=== PATIENT | male | born 1965 | race African-American/Black ===

== ENCOUNTER 2019-12-01 17:02 | Emergency (ER) | payer OTHER ==
[~2019-12-01] VITALS: Ht 182.9 cm; Wt 99.8 kg
[~2019-12-01 17:02] MED LIST: AMLODIPINE BESY10 MG PO; HYDROCHLOROTH12.5 M1 PO; NORVASC10 MG PO; PRILOSEC 20 MG20 MG PO; ZPAK PO
[2019-12-01] MEDS ORDERED: NORFLEX100 MG PO (18:30)
[2019-12-01] MEDS ORDERED: NAPROSYN500 MG PO (18:30)
[2019-12-01 18:51] VITALS: BP 151/103
== END 2019-12-01 18:52 | disposition home or self-care (01) ==
LOC: ER 17:02
DX: M54.12 Radiculopathy, cervical region (principal); I10 Essential (primary) hypertension; R20.2 Paresthesia of skin; M25.511 Pain in right shoulder; Z79.899 Other long term (current) drug therapy

== ENCOUNTER 2019-12-20 09:45 | Emergency (ER) | payer OTHER ==
[~2019-12-20] VITALS: Ht 182.9 cm; Wt 99.8 kg
[~2019-12-20 09:45] MED LIST changes: +NAPROSYN500 MG PO; +NORFLEX100 MG PO
[2019-12-20 09:49] VITALS: BP 173/108
== END 2019-12-20 10:54 | disposition home or self-care (01) ==
LOC: ER 09:45
DX: R07.89 Other chest pain (principal); I10 Essential (primary) hypertension; Z79.899 Other long term (current) drug therapy; W18.09XA Striking against other object with subsequent fall, initial encounter; Y93.89 Activity, other specified; Y92.89 Other specified places as the place of occurrence of the external cause; Y99.8 Other external cause status

== ENCOUNTER 2020-03-09 20:09 | Emergency (ER) | payer OTHER ==
[~2020-03-09] VITALS: Ht 182.9 cm; Wt 99.8 kg
[2020-03-09 22:38] VITALS: BP 133/79
== END 2020-03-09 22:33 | disposition home or self-care (01) ==
LOC: ER 20:09
DX: S61.214A Laceration without foreign body of right ring finger without damage to nail, initial encounter (principal); I10 Essential (primary) hypertension; Z79.899 Other long term (current) drug therapy; W18.39XA Other fall on same level, initial encounter; Y93.89 Activity, other specified; Y92.89 Other specified places as the place of occurrence of the external cause; Y99.8 Other external cause status

== ENCOUNTER 2020-12-31 12:29 | Inpatient (IN) | payer OTHER ==
[~2020-12-31] VITALS: Ht 182.9 cm; Wt 94.8 kg
[2020-12-31 12:38] VITALS: BP 202/112
[2020-12-31 13:35] LABS: ABSOLUTE NEUTROPHILS 6.9 thou/uL (1.4-8.2); BASOPHILS 0.2 % (0.0-2.0); EOSINOPHILS 0.1 % (0.0-3.0); HEMATOCRIT 52.5 % (42.0-52.0); HEMOGLOBIN 18.3 gm/dL (14.0-18.0); LYMPHOCYTES 1.3 % (24.0-44.0); MCH 28.6 pg (26.0-34.0); MCHC 34.9 g/dL (28.0-37.0); MCV 81.9 fL (80.0-100.0); MONOCYTES 10.2 % (1.0-8.0); PLATELET COUNT 291 thou/uL (150-400); POLYS 88.2 % (36.0-66.0); RBC 6.41 mil/uL (4.50-6.00); RDW 14.7 % (10.5-14.5); WBC 7.8 thou/uL (4.0-11.0)
[2020-12-31 13:54] LABS: ANION GAP 12 mmol/L (7-16); BUN 78 mg/dL (7-18); CALCIUM 8.4 mg/dL (8.5-10.1); CHLORIDE 96 mmol/L (98-107); CO2 23 mmol/L (21-32); CREATININE 3.8 mg/dL (0.7-1.3); GLUCOSE 117 mg/dL (74-106); SODIUM 131 mmol/L (136-145)
[2020-12-31 13:58] LABS: ALBUMIN 1.7 g/dL (3.4-5.0); SGOT 68 U/L (15-37); SGPT 57 U/L (16-63); TOTAL BILIRUBIN 0.6 mg/dL (0.2-1.0); TOTAL PROTEIN 6.7 g/dL (6.4-8.2); TROPONIN-I <0.06 ng/mL (<0.06)
--- NOTE | 2020-12-31 14:42 | EKG ---
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 : 1965 Requested By: Aleksandra Brown Order Number: [id number] MD: Lorne Shannon Measurements Intervals [place] Rate: 113 P: 34 OR: 185 QRS: 38 QRSD: 98 T: 46 QT: 320 QTc: 439 Interpretive Statements Sinus tachycardia Probable left atrial enlargement Borderline T wave abnormalities Compared to ECG 05/08/2016 17:45:56 T-wave abnormality now present Sinus rhythm no longer present Possible ischemia no longer present Electronically Signed On 12-31-2020 14:42:21 CDT by Lorne Shannon [email or web address] <ELECTRONICALLY SIGNED> By: Lorne Shannon MD, [facility] 12/31/20 1442 1341 1341 Lorne Shannon MD, FACC /EPI
[2020-12-31 15:26] LABS: APTT 39.2 Seconds (24.5-32.8); D-DIMER 0.47 ug/mLFEU (0.19-0.50); INR 1.12; PROTIME 12.1 Seconds (10.5-12.1)
[2020-12-31 18:32] VITALS: BP 187/94
[2020-12-31 18:48] VITALS: BP 179/115
--- NOTE | 2020-12-31 19:30 | NUR ---
PATIENT ADMIT TO UNIT AT 1835 FROM ER. A/O X4. ON 4L/NC. BP 179/115. UP AD CAPO. WILL KEEP MONITOR.
[2020-12-31 22:27] LABS: ALBUMIN 1.4 g/dL (3.4-5.0); TOTAL PROTEIN 6.2 g/dL (6.4-8.2)
--- NOTE | 2020-12-31 23:45 | NUR ---
PT RESTING IN BED. FLAT AFFECT. O2 PER NC. PT LUNGS WITH CRACKLES, ABD DISTENDED. PT PROVIDED MEAL TRAY. IVF INTACT. PT CALLS FOR ASSISTANCE. RENAL US COMPLETED. ID DR VISITED WITH PT. PT PROVIDED SPUTUM CONTAINER. BP REMAINS ELEVATED.
[2021-01-01 00:47] LABS: BE(vivo) -4.9 mmol/L (-2 to +3); HCO3 18.2 mmol/L (22.0-26.0); PCO2 30.2 mmHg (35.0-45.0); pH 7.398 (7.360-7.450); sO2 95.5 % (92.0-98.0)
[2021-01-01 02:32] LABS: HEMOGLOBIN 17.1 gm/dL (14.0-18.0); WBC 3.9 thou/uL (4.0-11.0)
[2021-01-01 02:35] LABS: ABSOLUTE NEUTROPHILS 3.6 thou/uL (1.4-8.2); BASOPHILS 0.2 % (0.0-2.0); HEMATOCRIT 47.9 % (42.0-52.0); MCH 28.7 pg (26.0-34.0); MCHC 35.7 g/dL (28.0-37.0); MCV 80.6 fL (80.0-100.0); MONOCYTES 3.7 % (1.0-8.0); PLATELET COUNT 279 thou/uL (150-400); POLYS 94.1 % (36.0-66.0); RBC 5.95 mil/uL (4.50-6.00); RDW 14.2 % (10.5-14.5)
[2021-01-01 02:53] LABS: ALBUMIN 1.4 g/dL (3.4-5.0); CALCIUM 7.3 mg/dL (8.5-10.1); CREATININE 3.4 mg/dL (0.7-1.3); MAGNESIUM 2.5 mg/dL (1.8-2.4); POTASSIUM 4.5 mmol/L (3.5-5.1); TOTAL BILIRUBIN 0.6 mg/dL (0.2-1.0); TOTAL PROTEIN 5.2 g/dL (6.4-8.2)
[2021-01-01 04:31] VITALS: BP 170/108
[2021-01-01 07:46] VITALS: BP 164/102
[2021-01-01 11:54] VITALS: BP 160/107
[2021-01-01 14:02] LABS: URINE BILIRUBIN NEGATIVE (Negative); URINE BLOOD 1+ (Negative); URINE CLARITY CLEAR; URINE COLOR YELLOW; URINE GLUCOSE-RANDOM* TRACE (Negative); URINE KETONES NEGATIVE (Negative); URINE LEUKOCYTES NEGATIVE (Negative); URINE NITRITE NEGATIVE (Negative); URINE PROTEIN (DIPSTICK) 3+ (Negative); URINE SPECIFIC GRAVITY 1.025 (1.005-1.035); URINE UROBILINOGEN 0.2 E.U./dl (0.2-1.0)
--- NOTE | 2021-01-01 14:14 | NUR ---
ROSEMARIE SPOKE TO RENAL DR. MARQUEZ REGARDING LABS INABILITY TO DRAW LABS,AND PIV'S NOT LASTING. DR. Greene GAVE OK FOR MIDLINE PLACEMENT. DISCUSSED BENEFITS AND RISK OF ML WITH PT, VERBALIZED UNDERSTANDING AND GAVE VERBAL CONSENT. JIMENA JEFFERS WAS WIDELY PATENT WITH USG, MEASURED 32%. 4FR POWER ML TRIMMED TO 14CM X1 STICK TO 0CM. LABS OBTAINED. PT TOLERATED WELL. ML RELEASED FOR IMMEDIATE USE PER PROTOCOL TO EULALIO MENDIOLA
--- NOTE | 2021-01-01 14:23 | NUR ---
At 1211 Moriah Damon at [facility] confirmed that patient had a positive covid test from [facility] on 12/22/20.
[2021-01-01 14:31] LABS: PROT/CREAT RATIO 8.3
[2021-01-01 14:32] LABS: HYALINE CASTS 0-3 Few /LPF (None Seen)
[2021-01-01 14:33] LABS: SQUAMOUS 0-3 Few /LPF (0-3); URINE RBC 1-2 Rare /HPF (NONE SEEN); URINE WBC 1-5 Rare /HPF (NONE SEEN)
[2021-01-01 14:35] LABS: AMORPHOUS URATES Moderate /LPF (None Seen)
--- NOTE | 2021-01-01 14:56 | NUR ---
INITIAL ASSESSMENT: Received consult. ALONA reviewed chart and spoke with nursing and attending physician. Pt was admitted due to COVID pneumonia. Pt placed in Enhanced Isolation. Pt is afebrile and requiring 4L of O2. Pt is on IV abx and IV steroids. Remdesivir and Ivermectin started. SW placed call to pt's room. No answer. Per chart, pt had positive COVID test on 12/[address] [facility]. Pt does not have health insurance. [employer] to screen pt to assist with Medicaid application and/or financial assistance. SW is following to assist as needed with discharge planning.
[2021-01-01 15:26] VITALS: BP 181/104
[2021-01-01 16:06] VITALS: BP 153/104
--- NOTE | 2021-01-01 17:32 | NUR ---
RN ASSUMED PT'S CARE AT 0700AM, PT IS A&OX4, PT IS ON O2 3L/MIN/NC, PT IS CONTINUING IV ABX AND IV FLIUDS, PT HAS STARTED TREATING POSITION COVID, PT HAS SOB WITH ACTIVITIES, PT CAN GET UP TO BATH ROOM WITH ASSIST, PT DENIES PAIN BY THIS TIME.
[2021-01-01 18:06] LABS: HIV ANTIBODY Non Reactive (Non Reactive)
[2021-01-01 19:44] VITALS: BP 156/109
[2021-01-02 03:57] VITALS: BP 178/115
[2021-01-02 04:24] LABS: HEMATOCRIT 48.9 % (42.0-52.0); HEMOGLOBIN 16.9 gm/dL (14.0-18.0); MCH 28.5 pg (26.0-34.0); MCHC 34.6 g/dL (28.0-37.0); MCV 82.4 fL (80.0-100.0); RBC 5.94 mil/uL (4.50-6.00); RDW 14.3 % (10.5-14.5); WBC 5.3 thou/uL (4.0-11.0)
[2021-01-02 04:28] LABS: ALBUMIN 1.3 g/dL (3.4-5.0); CALCIUM 7.2 mg/dL (8.5-10.1); CREATININE 3.7 mg/dL (0.7-1.3); DIRECT BILIRUBIN 0.2 mg/dL (<0.1-0.2); MAGNESIUM 2.4 mg/dL (1.8-2.4); PHOSPHORUS 4.7 mg/dL (2.5-4.9); POTASSIUM 3.7 mmol/L (3.5-5.1); TOTAL BILIRUBIN 0.3 mg/dL (0.2-1.0); TOTAL PROTEIN 5.7 g/dL (6.4-8.2)
--- NOTE | 2021-01-02 06:05 | NUR ---
PT A/0X4 WITH FLAT EFFECT. POC FOR COVID/PNA BEING FOLLOWED. MID LINE PLACED YESTERDAY ALLOWED RN TO PULL AM LABS. VSS AND PT 02 SATS ON 3L 96%. PT HAS NO COMPLAINTS OF PAIN OR N/V. HOURLY ROUNDING.
[2021-01-02 07:58] VITALS: BP 190/111
[2021-01-02 09:13] VITALS: BP 182/108
[2021-01-02 11:32] VITALS: BP 174/110
--- NOTE | 2021-01-02 15:36 | NUR ---
ALONA reviewed chart and spoke with nursing and attending physician. Pt remains in Enhanced Isolation due to COVID. Pt is afebrile and on 3L of O2. Pt is on IV abx and IV steroids. Remdesivir started. No weekend discharge planned. ALONA placed multiple calls to pt's room. No answer. SW will continue to follow up with pt to discuss discharge needs. Pt does not have health insurance. [employer] to follow up with pt regarding Medicaid application. ALONA is following to assist as needed with discharge planning.
[2021-01-02 16:58] VITALS: BP 164/87
--- NOTE | 2021-01-02 19:44 | NUR ---
RN ASSUMED PT'S CARE AT 0700-1900PM, PT IS A&OX4, PT IS CONTINUING TO USE IV ABX AND TREAT COVID, PT IS TOLERATED, PT HAS MEDICATIONS FOR HIGH BP, PT'S O2 IS OFF TODAY, PT DENIES SOB AT DAY SHIFT, PT'S CAUGHT HAS IMPROVED. PT GETS UP TO CHAIR BY HIMSELF.
[2021-01-02 19:45] VITALS: BP 170/96
[2021-01-03] VITALS (7 sets, daily range): BP systolic 157–196; BP diastolic 87–140
--- NOTE | 2021-01-03 03:45 | NUR ---
PT MAKING SLOW PROGRESS TOWARDS GOAL. ON ROOM AIR WITH OXYGEN SATS EQUAL TO OR GREATER THAN 93%. LUNGS CLEAR IN UPPER LOBES, DIMINISHED IN BOTH BASES. OCCASIONAL HARSH AND PRODUCTIVE COUGH WITH BLOOD TINGED SPUTUM PER PT. PT VOIDED X3 TO THE TOILET OVERNIGHT. PT INSTRUCTED TO USE THE URINALS FOR ACCURATE i&o REGARDING HIS ELEVATED CREAT LEVEL. PT VOICED UNDERSTANDING.
[2021-01-03 07:00] LABS: HEMATOCRIT 53.9 % (42.0-52.0); HEMOGLOBIN 18.3 gm/dL (14.0-18.0); MCH 27.9 pg (26.0-34.0); MCV 81.9 fL (80.0-100.0); RBC 6.58 mil/uL (4.50-6.00); RDW 14.5 % (10.5-14.5); WBC 11.1 thou/uL (4.0-11.0)
[2021-01-03 07:22] LABS: ALBUMIN 1.7 g/dL (3.4-5.0); CALCIUM 7.6 mg/dL (8.5-10.1); CREATININE 4.3 mg/dL (0.7-1.3); DIRECT BILIRUBIN 0.2 mg/dL (<0.1-0.2); MAGNESIUM 2.4 mg/dL (1.8-2.4); PHOSPHORUS 5.5 mg/dL (2.5-4.9); POTASSIUM 3.6 mmol/L (3.5-5.1); TOTAL BILIRUBIN 0.4 mg/dL (0.2-1.0); TOTAL PROTEIN 6.2 g/dL (6.4-8.2)
--- NOTE | 2021-01-03 19:41 | NUR ---
RN ASSUMED PT'S CARE AT [phone], PT IS A&OX4, PT IS ON ROOM AIR , PT IS CONTINUING USE IV ABX AND TREAT COVID, RN HAS CALLED RENAL DR AND HOSPITAL DR ABOUT PT'S HIGH BP, NEW BP MEDICATION HAS RECEIVED, PT'S HIGH BP HAS IMPROVED .
[2021-01-04 03:40] VITALS: BP 157/90
[2021-01-04 04:49] LABS: HEMATOCRIT 52.2 % (42.0-52.0); HEMOGLOBIN 18.1 gm/dL (14.0-18.0); MCH 28.4 pg (26.0-34.0); MCHC 34.6 g/dL (28.0-37.0); MCV 82.1 fL (80.0-100.0); RBC 6.36 mil/uL (4.50-6.00); RDW 14.3 % (10.5-14.5); WBC 10.1 thou/uL (4.0-11.0)
[2021-01-04 05:16] LABS: ALBUMIN 1.7 g/dL (3.4-5.0); CALCIUM 7.4 mg/dL (8.5-10.1); CREATININE 4.6 mg/dL (0.7-1.3); DIRECT BILIRUBIN 0.1 mg/dL (<0.1-0.2); MAGNESIUM 2.3 mg/dL (1.8-2.4); PHOSPHORUS 5.5 mg/dL (2.5-4.9); TOTAL BILIRUBIN 0.3 mg/dL (0.2-1.0); TOTAL PROTEIN 5.8 g/dL (6.4-8.2)
--- NOTE | 2021-01-04 07:28 | NUR ---
PT MAKING SLOW PROGRESS TOWARDS GOALS. ON ROOM AIR THROUGHOUT THE NIGHT. DENIES ANY SOA WHILE AT REST. UP TO TOILET AND SITTING IN CHAIR OCCASIONALLY. COUGH SYRUP ORDERED FOR REPORTED FREQUENT COUGH.
[2021-01-04 07:43] VITALS: BP 158/86
[2021-01-04 11:17] VITALS: BP 169/94
[2021-01-04 13:14] LABS: % SATURATION 104 % (20-39); IRON 151 ug/dL (65-175); TIBC 145 ug/dL (250-450)
[2021-01-04 15:15] VITALS: BP 144/80
--- NOTE | 2021-01-04 16:56 | NUR ---
RN ASSUMED PT'S CARE AT 0700AM, PT IS A&OX4, PT IS CONTINUING TO TREAT COVID, AND MANAGE HIGH BP, PT'S BP AND COUGH HAVE IMPROVED, PT IS ON ROOM AIR, PT'S VS ARE STABLE , PT GETS UP TO BATH ROOM WITHOUT ASSIST. PT DENIES PAIN AND SOB BY THIS TIME.
[2021-01-04 19:42] VITALS: BP 150/94
[2021-01-05 04:27] VITALS: BP 138/93
[2021-01-05 05:59] LABS: ALBUMIN 1.8 g/dL (3.4-5.0); CALCIUM 7.4 mg/dL (8.5-10.1); CREATININE 4.9 mg/dL (0.7-1.3); PHOSPHORUS 6.7 mg/dL (2.5-4.9); POTASSIUM 4.6 mmol/L (3.5-5.1)
[2021-01-05 06:09] LABS: ALBUMIN 1.7 g/dL (3.4-5.0); DIRECT BILIRUBIN 0.1 mg/dL (<0.1-0.2); TOTAL BILIRUBIN 0.3 mg/dL (0.2-1.0); TOTAL PROTEIN 5.4 g/dL (6.4-8.2)
[2021-01-05 07:31] VITALS: BP 152/85
--- NOTE | 2021-01-05 07:31 | NUR ---
ASSUME CARE 1900. PT/VITALS STABLE. BP RUNS HIGH SOMETIMES. DENIES ANY PAIN. GOOD ENDURANCE TO ACRIVITY. SR ON MONITOR WITH SPISODES OF BIGEMINY NOTED. MODERATE URINE OUTPUT NOTED. CR/BUN TRENDING UP. ASSESSMENT CHARTED. PROGRESSING WELL WITH POC. PLAN IS TO CONTINUE TO MONITOR AND MANAGE INFECTION AND RESPIRATORY FUNCTION. COULD BENEFIT FROM RENAL EVAL AND FOLLOW UP. WILL CONTINUE TO MONITOR AND FOLLOW WITH POC
[2021-01-05 11:20] VITALS: BP 141/93
--- NOTE | 2021-01-05 15:22 | NUR ---
SW reviewed chart and spoke with nursing and attending physician. Pt remains in Enhanced Isolation due to COVID. Pt is afebrile and not requiring O2. Pt is on IV steroids. Pt's creatnine elevated today. Renal is following. SW placed call to pt's room. No answer. Plan is for pt to discharge home when medically stable. [employer] to screen pt for [place]-Medicaid. SW will continue to contact pt and will assist as needed with discharge planning.
[2021-01-05 16:05] VITALS: BP 149/86
--- NOTE | 2021-01-05 19:33 | NUR ---
RN RESSUMED PT'S CARE AT 0700-1900PM, PT IS A&OX4, PT IS ON ROOM AIR, PT'S VS AND O2SAT ARE STABLE, RN HAS REPORTED TO DR ABOUT PT STILL HAS DIRRHEA AND BLACK STOOL, NEW ORDER RECEIVED,
[2021-01-05 19:41] VITALS: BP 145/86
--- NOTE | 2021-01-05 21:50 | NUR ---
PT ALERT AND ORIENTED X4. VSS AFEBRILE. UP AD CAPO TO BR. ENCOURAGED PT TO LET NS SEE STOOL NEXT TIME HE GOES TO THE BR. STOOL FOR OB STILL PENDING. HELD HEPARIN UNTIL OB RESULT. NO C/O PAIN. NO OTHER S/S DISTRESS NOTED.
--- NOTE | 2021-01-05 22:35 | NUR ---
NOTIFIED PRE SALES TECHNICAL ENGINEER STOOL FOR OB POSITIVE, DISCONTINUED HEPARINAS ORDERED.
[2021-01-06 03:51] VITALS: BP 136/76
--- NOTE | 2021-01-06 05:21 | NUR ---
PT A&OX4. VSS AFEBRILE. STOOL FOR OB POSITIVE. MANAGER STONE NOTIFIED. PT STARTED ON PROTONIX IVP ORDERED AND HEPARIN DISCONTINUED ORDERED. PT HAS HAD ONLY 1 STOOL TONIGHT. IT WAS SEMI-FORMED STOOL. DARK BROWN IN COLOR. NO VISIBLE BLOOD NOTED. STOOL FOR CDIFF STILL PENDING. NO C/O PAIN. PT SITTING UP IN CHAIR. HE STATED HE CANT SLEEP. NO S/S DISRESS PRESENTLY. LUNGS SOUND CLEAR AND DIMINISHED AT BASES . UNLABORED ON RA.
[2021-01-06 07:41] VITALS: BP 149/89
[2021-01-06 09:57] LABS: HEMATOCRIT 50.6 % (42.0-52.0); HEMOGLOBIN 17.3 gm/dL (14.0-18.0); MCHC 34.2 g/dL (28.0-37.0); RBC 6.16 mil/uL (4.50-6.00); RDW 14.1 % (10.5-14.5)
[2021-01-06 10:17] LABS: ALBUMIN 1.9 g/dL (3.4-5.0); CALCIUM 7.7 mg/dL (8.5-10.1); CREATININE 4.8 mg/dL (0.7-1.3); PHOSPHORUS 6.6 mg/dL (2.5-4.9)
[2021-01-06 11:58] VITALS: BP 142/85
--- NOTE | 2021-01-06 13:11 | NUR ---
ALONA reviewed chart and spoke with nursing and attending physician. Pt remains in Enhanced Isolatio due to COVID. Pt is afebrile and not requiring O2. Pt is on IV steroids. Nephrology following for elevated creatnine. GI consulted due to positive stool occult. Plan is for pt to discharge home when medically stable. ALONA placed call to pt's room. No answer. ALONA left voice message for pt on cell phone: [phone]. [employer] to follow up with pt regarding [place]-Med[place] and/or financial assistance. ALONA is following to assist as needed with discharge planning.
[2021-01-06] MEDS ORDERED: CARDURA4 MG PO (15:59)
[2021-01-06] MEDS ORDERED: BAYER CHEWABLE81 MG PO (15:59)
[2021-01-06] MEDS ORDERED: ZINC SULFATE50 MG PO (16:00)
[2021-01-06] MEDS ORDERED: SODIUM BICARBO650 M3 PO (16:02)
[2021-01-06] MEDS ORDERED: PREDNISONE 10 M10 MG PO (16:03)
[2021-01-06] MEDS ORDERED: BYSTOLIC20 MG PO (16:04)
[2021-01-06 16:18] VITALS: BP 143/82
[2021-01-06 17:07] VITALS: BP 143/82
--- NOTE | 2021-01-06 18:05 | NUR ---
MIDLINE REMOVED FROM LEFT UA, NO BLEEDING OR HEMATOMA NOTED. VSS. NO CHANGES IN PREVIOUSLY CHARTED ASSESSMENT. DC TO HOME VIA PRIVATE VEHICLE.
== END 2021-01-06 18:22 | disposition home or self-care (01) | DRG 871 ==
LOC: ER 12:29 → 3W 16:54 → EROBS 16:54 → 3W 18:28
PROVIDERS: Hospitalist; Internal Medicine Hematology & Oncology; Internal Medicine Nephrology; Nurse Practitioner Family; Specialist; ADMIT Internal Medicine; ATTEND Internal Medicine
PROC: 05HA33Z Insertion of Infusion Device into Left Brachial Vein, Percutaneous Approach (ICD-10-PCS; principal; 2021-01-01)
PROC: B54NZZA Ultrasonography of Left Upper Extremity Veins, Guidance (ICD-10-PCS; principal; 2021-01-01)
PROC: XW033E5 Introduction of Remdesivir Anti-infective into Peripheral Vein, Percutaneous Approach, New Technology Group 5 (ICD-10-PCS; principal; 2021-01-01)
DX: A41.9 Sepsis, unspecified organism (principal); U07.1 COVID-19; J12.82 Pneumonia due to coronavirus disease 2019; J96.01 Acute respiratory failure with hypoxia; E43 Unspecified severe protein-calorie malnutrition; J15.9 Unspecified bacterial pneumonia; R04.2 Hemoptysis; E87.1 Hypo-osmolality and hyponatremia; N17.9 Acute kidney failure, unspecified; I12.9 Hypertensive chronic kidney disease with stage 1 through stage 4 chronic kidney disease, or unspecified chronic kidney disease; N18.9 Chronic kidney disease, unspecified; E83.39 Other disorders of phosphorus metabolism; D75.1 Secondary polycythemia; E88.09 Other disorders of plasma-protein metabolism, not elsewhere classified; Z79.899 Other long term (current) drug therapy; Z68.28 Body mass index [BMI] 28.0-28.9, adult
CPT/HCPCS: 10879; 27000